=== PATIENT | male | born 1955 | race Caucasian/White ===

== ENCOUNTER → 2024-04-06 08:17 | Outpatient (REF) | payer OTHER, SELFPAY | LOC: RCS 08:17 | PROVIDERS: ATTENDING PHYSICIAN Internal Medicine | DX: I10 Essential (primary) hypertension (principal); M33.13 Other dermatomyositis without myopathy; R09.89 Other specified symptoms and signs involving the circulatory and respiratory systems; I35.8 Other nonrheumatic aortic valve disorders; N40.1 Benign prostatic hyperplasia with lower urinary tract symptoms; Z00.00 Encounter for general adult medical examination without abnormal findings | CPT/HCPCS: 93306 ==

== ENCOUNTER → 2024-04-13 08:19 | Outpatient (REF) | payer OTHER, SELFPAY | LOC: RAD 08:19 | PROVIDERS: ATTENDING PHYSICIAN Internal Medicine | DX: I10 Essential (primary) hypertension (principal); M33.13 Other dermatomyositis without myopathy; R09.89 Other specified symptoms and signs involving the circulatory and respiratory systems; I35.8 Other nonrheumatic aortic valve disorders; N40.1 Benign prostatic hyperplasia with lower urinary tract symptoms; Z00.00 Encounter for general adult medical examination without abnormal findings | CPT/HCPCS: 93880 ==